=== PATIENT | female | born 1950 | race Caucasian/White ===

== ENCOUNTER 2019-09-03 13:13 | Emergency (ER) | payer MEDICARE ==
[~2019-09-03] VITALS: Ht 160 cm; Wt 94.1 kg
[2019-09-03 14:41] VITALS: BP 139/75
--- NOTE | 2019-09-03 15:06 | PHYS DOC ---
Past Medical History Past Medical History: No Pertinent History Past Surgical History: No Surgical History Smoking Status: Never Smoker Alcohol Use: None General Adult EDM: Chief Complaint: MECHANICAL FALL HPI: HPI: Patient is a 69 year old female who presents with mild intermittent right upper extremity pain that began on August 23, 2019 after she fell down two steps. Patient was seen at [facility], she had x-rays done. She states she was told to go home but she came to the ED to have somebody else look at her right upper extremity. Patient reports pain is worse on range of motion, describes the pain as throbbing. Review of Systems: Review of Systems: Constitutional: Denies fever or chills. [] Eyes: Denies change in visual acuity. [] HENT: Denies nasal congestion or sore throat. [] Respiratory: Denies cough or shortness of breath. [] Cardiovascular: Denies chest pain or edema. [] GI: Denies abdominal pain, nausea, vomiting, bloody stools or diarrhea. [] : Denies dysuria. [] Musculoskeletal: Reports right upper extremity pain Integument: Denies rash. [] Neurologic: Denies headache, focal weakness or sensory changes. [] Psychiatric: Denies depression or anxiety. [] Heart Score: Risk Factors: Risk Factors: DM, Current or recent (<one month) smoker, HTN, HLP, family hist ory of CAD, obesity. Risk Scores: Score 0 - 3: 2.5% MACE over next 6 weeks - Discharge Home Score 4 - 6: 20.3% MACE over next 6 weeks - Admit for Clinical Observation Score 7 - 10: 72.7% MACE over next 6 weeks - Early Invasive Strategies Physical Exam: PE: Constitutional: Well developed, well nourished, no acute distress, non-toxic appearance. [] Skin: Warm, dry, no erythema, no rash. [] Back: No tenderness, no CVA tenderness. [] Extremities: Right humerus with moderate amount of bruising that appears old. Tenderness to the right humeral head. Full passive range of motion to the right upper extremity. Adequate radial, median, ulnar sensation to the right upper extremity. +2 right radial pulse. Cap refill less than 2 seconds the right fingers Neurologic: Alert and oriented X 3, normal motor function, normal sensory function, no focal deficits noted. [] Psychologic: Affect normal, judgement normal, mood normal. [] Current Patient Data: Vital Signs: Vital Signs Date Time Temp Pulse Resp B/P (MAP) Pulse Ox O2 Delivery O2 Flow Rate FiO2 09/03/19 13:30 98.3 98 16 150/67 (94) 92 Room Air 98.3 EKG: EKG: [] Radiology/Procedures: Radiology/Procedures: [] Course & Med Decision Making: Course & Med Decision Making Pertinent Labs and Imaging studies reviewed. (See chart for details) This is a 69-year-old female patient presented to the ED today with right upper extremity pain that began on August 23, 2019 after she fell. She had x-rays done at [facility], x-rays which were loaded in our computer, patient has to have right humeral head fracture. Spoke with Dr. Otero who requested we discharge patient to home and she can follow-up in the clinic. Sling provided by the Ed RN, neurovascular exam done post sling application is normal. Ice elevation. Dragon Disclaimer: Dragon Disclaimer: This electronic medical record was generated, in whole or in part, using a voice recognition dictation system. Departure Departure Impression: Primary Impression: Fall Qualified Codes: W19.XXXA - Unspecified fall, initial encounter Additional Impression: Fracture of humeral head, right, closed Qualified Codes: S42.291D - Other displaced fracture of upper end of right humerus, subsequent encounter for fracture with routine healing Disposition: 01 HOME, SELF-CARE Condition: STABLE Referrals: UNKNOWN PCP NAME (PCP) BERLIN OTERO MD call him tomorrow and set up a follow up appointment Patient Instructions: Humerus Fracture, Treated with Immobilization, [id number] Additional Instructions: You have right humerus fracture. Please contact the provided orthopedic doctor tomorrow and set up a follow-up appointment as an outpatient. Wear the sling as tolerated. Try to ice and elevate the extremity. ISIDRO FERNANDES APRN September 03, 2019 15:06
== END 2019-09-03 15:11 | disposition home or self-care (01) ==
LOC: ER 13:13
DX: S42.291D Other displaced fracture of upper end of right humerus, subsequent encounter for fracture with routine healing (principal); W10.8XXD Fall (on) (from) other stairs and steps, subsequent encounter
CPT/HCPCS: 99282

== ENCOUNTER → 2019-10-27 | Outpatient (CLI) | payer MEDICARE ==
--- NOTE | 2019-10-27 15:26 | KCIC ---
INDICATION: Osteoporosis screening. Postmenopausal screening COMPARISON: None. TECHNIQUE: Bone densitometry was performed through the lumbar spine and proximal femur. FINDINGS: Lumbar Spine: BMD: 0.98 T-Score: -0.6 Proximal Femur: BMD: 0.79 T-Score: -1.3 IMPRESSION: 1. Lumbar spine falls within the lower limits of normal range. 2. Proximal femur falls within the osteopenic range. * Electronically signed by: Minh Granados MD (10/27/2019 3:23 PM) [id number]
== END | disposition home or self-care (01) ==
LOC: KCIC DEXA 11:07
PROVIDERS: ATTEND Family Medicine
DX: Z13.820 Encounter for screening for osteoporosis (principal)
CPT/HCPCS: 77080